=== PATIENT | female | born 1935 | race Caucasian/White ===

== ENCOUNTER 2017-05-02 21:25 | Inpatient (IN) | payer OTHER, MEDICAID ==
[~2017-05-02] VITALS: Ht 157.5 cm; Wt 107.0 kg
[~2017-05-02 21:25] MED LIST: ASPI-498 PO; ATOR20TA50 PO; CRANCAP12 PO; GABA300C10 PO; HYDR500T13 PO; IBUP600T27 PO; IRONCAP PO; MISCTAB85 PO; PERCOT PO; PYRI100T51 PO; [UNRECOGNIZED DRUG - CODE] PO
[2017-05-02 22:25] LABS: Basophils # (auto) 0 uL; Basophils % (auto) 0.4 % (0.0-2.0); Eosinophils # (auto) 0.1 uL; Eosinophils % (auto) 0.7 % (0.0-7.0); Hematocrit 41.8 % (36.0-46.0); Hemoglobin 13.7 g/dL (12.2-16.2); Lymphocytes # (auto) 0.5 uL; Lymphocytes % (auto) 5.2 % (10.0-50.0); Mean Corpuscular Hgb Conc. 32.9 g/dL (32.0-36.0); Mean Corpuscular Volume 100.5 fL (80.0-100.0); Monocytes # (auto) 0.7 uL; Neutrophils # (auto) 8.3 uL; Neutrophils % (auto) 86.7 % (37.0-80.0); Platelet Count (auto) 231 10^3/uL (140-450); Red Blood Cells 4.16 10^6/uL (4.0-5.20); Red Cell Distribution Width 13.9 % (11.8-14.3); White Blood Cell 9.5 10^3/uL (4.4-10.8)
[2017-05-02 22:40] LABS: Alanine Aminotransferase 16 U/L (13-56); Albumin 3.2 g/dL (3.4-5.0); Anion Gap 2 (5-15); Aspartate Aminotransferase 5 U/L (15-37); BUN/Creatinine Ratio 18.1; Blood Urea Nitrogen 17 mg/dL (7-18); Calcium 8.8 mg/dL (8.5-10.1); Carbon Dioxide 30 mmol/L (21-32); Chloride 107 mmol/L (98-107); GFR African American 74 mL/min; GFR Non-African American 61 mL/min; Glucose 282 mg/dL (74-106); Potassium 4.3 mmol/L (3.5-5.1); Sodium 139 mmol/L (136-145)
[2017-05-02 22:45] LABS: Alkaline Phosphatase 86 U/L (45-117); Bilirubin, Total 0.3 mg/dL (0.2-1.0); Total Protein 7.1 g/dL (6.4-8.2)
[2017-05-02] MEDS ORDERED: cloNIDine HCL 0.1 MG TAB ONE (22:56)
[2017-05-02 23:31] LABS: Blood Alcohol < 3.0 mg/dL (0-5); Magnesium 1.7 mg/dL (1.6-2.6)
[2017-05-02 23:41] LABS: INR 0.95 (0.9-1.15); Partial Thromboplastin Time 29.2 sec (22.64-33.71); Prothrombin Time 10.3 sec (9.37-12.3)
[2017-05-03] MEDS ORDERED: clonazePAM 0.5 MG TAB PO ONE
[2017-05-03] MEDS ORDERED: cloNIDine HCL 0.1 MG TAB PO ONE
[2017-05-03] MEDS ORDERED: ATE50T PO (00:31)
[2017-05-03] MEDS ORDERED: ATOR20TA50 PO (00:31)
[2017-05-03] MEDS ORDERED: DOCUSATE SOD 100 MG CAP PO PRN (01:15)
[2017-05-03] MEDS ORDERED: TEMAZEPAM 15 MG CAP PO PRN (01:15)
[2017-05-03] MEDS ORDERED: cefTRIAXone 1GM/10ml IVPUSH 10 ML IV ONE (01:15)
[2017-05-03] MEDS ORDERED: ONDANSETRON HCL 4 MG/2 ML VIAL IV PRN (01:15)
[2017-05-03] MEDS ORDERED: MORPHINE SULFATE 4 MG/ML SYR/VIAL IV PRN (01:15)
[2017-05-03] MEDS ORDERED: ACETAMINOPHEN 325 MG TAB PO PRN (01:15)
[2017-05-03] MEDS ORDERED: NITROGLYCERIN 0.4 MG SL TAB SL PRN (01:15)
[2017-05-03] MEDS ORDERED: cloNIDine HCL 0.1 MG TAB PO PRN (01:15)
[2017-05-03] MEDS ORDERED: DEXTROSE (50%) 50ML SYRG IV PRN (01:15)
[2017-05-03] MEDS ORDERED: IOHEXOL 350 MG/ML 100ML IJ ONE (01:19)
[2017-05-03] MEDS ORDERED: AZITHROMYCIN 500MG/ 250ML 250 ML IV ONE (03:15)
[2017-05-03] MEDS: HYDROcodone-ACET 5/325MG TAB PO PRN ×2 (03:22→14:53)
[2017-05-03] MEDS: ACCU-CHEK COMFORT CURVE STRIP VI SCH ×3 (06:29→18:25)
[2017-05-03] MEDS: GABAPENTIN 300 MG CAP PO SCH ×2 (06:29→14:53)
[2017-05-03] MEDS: InsuLIN REG 1unit/0.01ml Soln (100units/ml) SC SCH ×3 (06:29→18:25)
[2017-05-03 08:00] VITALS: BP 134/51
[2017-05-03] MEDS ORDERED: cefTRIAXone 1GM/10ml IVPUSH 10 ML IV SCH (09:00)
[2017-05-03 09:27] VITALS: BP 134/51
[2017-05-03] MEDS ORDERED: ATENOLOL 25 MG TABLET PO SCH (10:00)
[2017-05-03] MEDS ORDERED: FAMOTIDINE 20 MG TAB PO SCH (10:00)
[2017-05-03] MEDS ORDERED: ENOXAPARIN SOD 40 MG/0.4 ML SYRINGE SC SCH (10:00)
[2017-05-03] MEDS ORDERED: METOPROLOL TARTRATE 25 MG TAB PO SCH (11:15)
[2017-05-03] MEDS ORDERED: METOPROLOL TARTRATE 50 MG TAB PO SCH (11:15)
[2017-05-03 12:00] VITALS: BP 139/72
[2017-05-03 12:28] LABS: Urine Bacteria NONE SEEN /hpf (None Seen); Urine Blood 1+ /uL (Negative); Urine WBC 30 /hpf (0 - 5)
[2017-05-03 12:45] LABS: Alcohol, Urine < 3.0 mg/dL (0-5); Amphetamine Screen, Urine NEGATIVE (NEGATIVE); Barbiturate Scree,Urine NEGATIVE (NEGATIVE); Benzodiazephine Screen, Urine NEGATIVE (NEGATIVE); Cannabinoid Screen, Urine NEGATIVE (NEGATIVE); Cocaine Screen, Urine NEGATIVE (NEGATIVE); Opiate Scree,Urine POSITIVE (NEGATIVE); Phencyclidine Screen, Urine NEGATIVE (NEGATIVE)
[2017-05-03 17:00] VITALS: BP 146/72
[2017-05-03 17:09] VITALS: BP 146/72
[2017-05-03 20:00] VITALS: BP 161/70
[2017-05-03] MEDS ORDERED: ATORVASTATIN 20 MG TAB PO SCH (22:00)
[2017-05-03] MEDS ORDERED: AZITHROMYCIN 500MG/ 250ML 250 ML IV SCH (22:00)
== END 2017-05-03 21:20 | DRG 193 ==
LOC: EDBD 21:25 → ER 21:27 → WEST WING 21:28 → ER 05-03 08:03
PROVIDERS: ADMIT Nurse Practitioner; ATTEND Internal Medicine
DX: J18.1 Lobar pneumonia, unspecified organism (principal); G93.41 Metabolic encephalopathy; J44.0 Chronic obstructive pulmonary disease with (acute) lower respiratory infection; E66.01 Morbid (severe) obesity due to excess calories; F03.90 Unspecified dementia, unspecified severity, without behavioral disturbance, psychotic disturbance, mood disturbance, and anxiety; N39.0 Urinary tract infection, site not specified; Z68.41 Body mass index [BMI] 40.0-44.9, adult; G89.29 Other chronic pain; E78.5 Hyperlipidemia, unspecified; E78.00 Pure hypercholesterolemia, unspecified; K59.00 Constipation, unspecified; G47.00 Insomnia, unspecified; I10 Essential (primary) hypertension; R79.1 Abnormal coagulation profile; Z85.3 Personal history of malignant neoplasm of breast; Z91.14 Patient's other noncompliance with medication regimen; Z91.19 Patient's noncompliance with other medical treatment and regimen; Z90.11 Acquired absence of right breast and nipple; Z79.899 Other long term (current) drug therapy; Z79.82 Long term (current) use of aspirin
CPT/HCPCS: 36415; 51702; 70450; 71045; 71275; 80053; 80307; 80320; 81001; 82010; 82962; 83036; 83735; 83880; 84484; 85025; 85379; 85610; 85730; 93005; 93970; 94761; 96374; 96375; J1815